=== PATIENT | male | born 1985 ===

== ENCOUNTER 2023-01-30 21:26 | Emergency (ER) | payer SELFPAY ==
[~2023-01-30] VITALS: Ht 175.3 cm; Wt 81.7 kg
[2023-01-31] MEDS ORDERED: LIDOCAINE1 EACH TOP (00:05)
[2023-01-31 00:27] VITALS: BP 140/106
== END 2023-01-31 00:17 | disposition home or self-care (01) ==
LOC: EDSEX 21:26 → ER 21:26
DX: M54.9 Dorsalgia, unspecified (principal); Z59.01 Sheltered homelessness
CPT/HCPCS: 99283; A9270